=== PATIENT | female | born 1965 | race Caucasian/White ===

== ENCOUNTER 2023-10-28 13:53 | Emergency (ER) | payer BC ==
[~2023-10-28] VITALS: Ht 157.5 cm; Wt 55.5 kg
[~2023-10-28 13:53] MED LIST: AMLODIPINE BESYL5 MG PO; CLARITIN LIQUI-10 MG PO; CLOPIDOGREL PO; COREG 6.256.25 MG/TA PO; CRESTOR40 MG PO; FENOFIBRATE145 MG PO; GOOD SENSE ASPI81 M1 PO; HYZAAR 50-12.51 EACH PO; LEVOTHYROXINE25 MCG PO; METFORMIN HYD1000 MG PO; MOUNJARO15 MG/0.5 SQ; NEURONTIN300 M1 PO; NORCO 325 MG-7.1 TA1 PO; PEPCID AC20 M2 PO; TRAMADOL 50 MG TAB PO; WELLBUTRIN XL150 M2 PO
[2023-10-28] MEDS ORDERED: NS 1,000 ML IV SCH ×3 (14:15→21:30)
[2023-10-28] MEDS ORDERED: LOSARTAN POTASS1 TA2 PO (14:19)
[2023-10-28] MEDS ORDERED: ELIQUIS5 MG PO (14:20)
[2023-10-28] MEDS ORDERED: FLUOXETINE HCL10 MG PO (14:20)
[2023-10-28 14:21] LABS: BASO # 0.01 K/mm3 (0.02-0.10); EOS # 0.01 K/mm3 (0.04-0.40); EOS % 0.1 % (1.0-5.0); HEMATOCRIT 43.5 % (37.0-47.0); HEMOGLOBIN 15.6 g/dL (12.5-16.0); LYMPH# 1.21 K/mm3 (1.50-4.00); MEAN CELL VOLUME 86 fl (78-100); MEAN CORPUSCULAR HEMOGLOBIN 31 pg (27-31); MEAN CORPUSCULAR HGB CONC 36 g/dL (33-37); MEAN PLATELET VOLUME 9.4 fl (7.4-10.4); MONO # 0.76 K/mm3 (0.20-0.80); NEU # 12.93 K/mm3 (1.40-6.50); PLATELET COUNT 385 K/mm3 (130-400); RED BLOOD COUNT 5.08 M/mm3 (4.10-5.30); RED CELL DISTRIBUTION WIDTH 12.7 % (11.5-14.5)
[2023-10-28 14:24] LABS: ALBUMIN 5.2 g/dL (3.5-5.0)
[2023-10-28 14:26] LABS: CALCIUM 10.8 mg/dL (8.3-10.5)
[2023-10-28 14:27] LABS: TOTAL PROTEIN 8.4 g/dL (6.4-8.3)
[2023-10-28 14:29] LABS: TOTAL BILIRUBIN 1.1 mg/dL (0.2-1.2)
[2023-10-28] MEDS ORDERED: Potassium Chloride 100 ML IV SCH ×3 (14:45→21:00)
[2023-10-28] MEDS ORDERED: Famotidine 20 MG/2 ML VIAL IV ONE (17:30)
[2023-10-28 20:20] LABS: HEMATOCRIT 44.4 % (37.0-47.0); HEMOGLOBIN 15.8 g/dL (12.5-16.0); RED BLOOD COUNT 5.12 M/mm3 (4.10-5.30); RED CELL DISTRIBUTION WIDTH 12.6 % (11.5-14.5); WHITE BLOOD COUNT 12.8 K/mm3 (4.8-10.8)
[2023-10-28 20:29] LABS: CALCIUM 9.5 mg/dL (8.3-10.5)
[2023-10-28 20:56] LABS: GASTROCCULT POSITIVE
[2023-10-28] MEDS ORDERED: Pantoprazole 80 MG in NS 100 ML IV ONE (21:00)
[2023-10-28] MEDS ORDERED: fentaNYL 100 MCG/2 ML VIAL IV ONE (22:45)
[2023-10-28 23:35] VITALS: BP 133/88
[2023-10-28 23:44] LABS: URINE APPEARANCE CLEAR (CLEAR); URINE COLOR YELLOW (YELLOW)
[2023-10-28 23:52] LABS: URINE BILIRUBIN NEGATIVE (NEGATIVE); URINE BLOOD 2+ (NEGATIVE); URINE GLUCOSE TRACE (NEGATIVE); URINE KETONE 2+ (NEGATIVE); URINE LEUKOCYTE ESTERASE NEGATIVE (NEGATIVE); URINE NITRATE NEGATIVE (NEGATIVE); URINE PROTEIN(semi-quant) 3+ (NEGATIVE)
[2023-10-28 23:59] LABS: URINE MUCUS PRESENT (NOT PRESENT)
== END 2023-10-28 23:35 | disposition short-term general hospital (02) ==
LOC: ED 13:53
PROVIDERS: Family Medicine
DX: K92.0 Hematemesis (principal); E87.6 Hypokalemia; Z79.01 Long term (current) use of anticoagulants
CPT/HCPCS: C9113; J3010; J3480; J3490; J7030